=== PATIENT | male | born 1960 | race Caucasian/White ===

== ENCOUNTER → 2020-08-26 | Outpatient (CLI) | payer MEDICARE, OTHER | LOC: SLEEP 10:34 | DX: G47.33 Obstructive sleep apnea (adult) (pediatric) (principal); R04.0 Epistaxis; I10 Essential (primary) hypertension; E78.5 Hyperlipidemia, unspecified; Z87.891 Personal history of nicotine dependence; J31.0 Chronic rhinitis | CPT/HCPCS: 95811 ==